=== PATIENT | female | born 1960 | race Caucasian/White ===

== ENCOUNTER 2022-09-07 13:05 | Inpatient (IN) | payer MEDICAID ==
[~2022-09-07] VITALS: Ht 170.2 cm; Wt 81.3 kg
[2022-09-07] MEDS ORDERED: normal saline 1000ML IV soln IV ONE (13:25)
[2022-09-07] MEDS ORDERED: hydrALAZINE 20mg/ml inj. IV ONE (13:50)
[2022-09-07 13:57] LABS: BASOPHILS # (AUTO) 0.1 X10'3 (0-0.2); BASOPHILS % (AUTO) 0.4 % (0-1); EOSINOPHILS # (AUTO) 0.1 X10'3 (0-0.9); EOSINOPHILS % (AUTO) 0.8 % (0-6); HEMATOCRIT 46.5 % (35.0-45.0); LYMPHOCYTES # (AUTO) 0.8 X10'3 (1.1-4.8); LYMPHOCYTES % (AUTO) 5.3 % (21-51); MEAN CORPUSCULAR HEMOGLOBIN 26.7 PG (27.0-31.0); MEAN CORPUSCULAR HGB CONC 32.2 g/dL (33.0-36.5); MEAN CORPUSCULAR VOLUME 82.9 FL (78-98); MEAN PLATELET VOLUME 9.7 FL (7.4-10.4); MONOCYTES % (AUTO) 6.9 % (2-12); NEUTROPHILS # (AUTO) 12.9 X10'3 (1.8-7.7); NEUTROPHILS % (AUTO) 86.6 % (42-75); PLATELET COUNT 335 X10'3 (140-440); RED BLOOD COUNT 5.61 X10'6 (4.20-5.60); RED CELL DISTRIBUTION WIDTH 14.8 % (11.5-14.5); WHITE BLOOD COUNT 14.9 X10'3 (4.5-11.0)
[2022-09-07 14:13] LABS: ALANINE AMINOTRANSFERASE 28 U/L (12-78); ALBUMIN 3.2 G/DL (3.4-5.0); ALBUMIN/GLOBULIN RATIO 0.8 (1.1-1.5); ALKALINE PHOSPHATASE 76 IU/L (46-116); ANION GAP 12 (8-16); ASPARTATE AMINO TRANSFERASE 22 U/L (10-37); BILIRUBIN,TOTAL 0.4 MG/DL (0.1-1.0); BLOOD UREA NITROGEN 40 MG/DL (7-18); BUN/CREATININE RATIO 20.5 (6.6-38.0); CALCIUM 10.2 MG/DL (8.5-10.1); CHLORIDE 106 MMOL/L (99-107); CREATININE 1.95 MG/DL (0.40-0.90); GLUCOSE 124 MG/DL (70-104); MAGNESIUM 1.5 MG/DL (1.5-2.4); SODIUM 146 MMOL/L (135-145); TOTAL CARBON DIOXIDE 28.1 MMOL/L (24-32); TOTAL PROTEIN 7.3 G/DL (6.4-8.2); eGFR 26 ML/MIN
[2022-09-07 14:26] LABS: CLARITY,URINE SLIGHTLY CLOUDY (Clear); COLOR,URINE STRAW (Yellow); GLUCOSE, URINE 500 mg/dl (Neg); KETONES,URINE NEGATIVE (Neg); LEUKOCYTE ESTERASE ,URINE NEGATIVE (Neg); NITRITES, URINE NEGATIVE (Neg); OCCULT BLOOD,URINE SMALL (Neg); PROTEIN,URINE >=300 mg/dl (Neg); UROBILINOGEN,URINE 0.2 E.U/dL (0.2-1.0)
[2022-09-07 14:36] LABS: UA COLLECTION TYPE FOLEY CATH
[2022-09-07 14:36] LABS: POTASSIUM 2.5 MMOL/L (3.5-5.1)
[2022-09-07] MEDS ORDERED: potassium Cl 20 mEq SR tablet PO PRN (14:40)
[2022-09-07] MEDS ORDERED: magnesium Cl slow-release 64mg tablet PO PRN ×2 (14:40→20:30)
[2022-09-07] MEDS ORDERED: magnesium 4gm in 100ml NS 100 ML IV PRN ×2 (14:40→20:30)
[2022-09-07 14:42] LABS: SQUAMOUS EPITHELIAL CELL,UR FEW /LPF (FEW)
[2022-09-07 14:43] LABS: BACTERIA,URINE FEW /HPF (Neg); MUCUS STRANDS NONE SEEN /LPF (Neg)
[2022-09-07 14:44] LABS: RBC,URINE 0-2 /HPF (0-2); WBC,URINE 0-4 /HPF (0-4)
[2022-09-07] MEDS ORDERED: normal saline 1000ML IV soln IVB ONE (15:00)
[2022-09-07] MEDS ORDERED: labetalol 20mg/4ml (5mg/ml) syringe IV ONE (15:05)
[2022-09-07] MEDS: potassium Cl 40MEQ/1/2NS 520ml 520 ML IV PRN ×2 (15:19→22:37)
[2022-09-07 15:48] LABS: URINE AMPHETAMINE SCREEN NEGATIVE (Neg); URINE BARBITUATE SCREEN NEGATIVE (Neg); URINE BENZODIAZEPINES SCREEN NEGATIVE (Neg); URINE CANNABINOID SCREEN NEGATIVE (Neg); URINE COCAINE SCREEN NEGATIVE (Neg); URINE METHADONE SCREEN NEGATIVE (Neg); URINE OPIATE SCREEN NEGATIVE (Neg); URINE PHENCYCLIDINE SCREEN NEGATIVE (Neg)
[2022-09-07] MEDS ORDERED: hydrALAZINE 25 MG tablet PO ONE (17:55)
[2022-09-07] MEDS ORDERED: nitroGLYCERIN 0.4mg/hour patch TD ONE (18:35)
[2022-09-07] MEDS: K and/or MAG REPLACEMENT MC SCH (20:00)
[2022-09-07] MEDS ORDERED: ondansetron/PF 4mg/2ml inj IV PRN (20:30)
[2022-09-07] MEDS ORDERED: bisacodyl 10mg suppository rectal RC PRN (20:30)
[2022-09-07] MEDS ORDERED: magnesium hydroxide 30ml (MOM) UD suspension PO PRN (20:30)
[2022-09-07] MEDS ORDERED: PERFLUTREN PROTEIN-A MICROSPHR (Optison) 0.22 MG/ML 3ML VIAL IV PRN (20:30)
[2022-09-07] MEDS ORDERED: acetaminophen 325mg tablet PO PRN (20:30)
[2022-09-07] MEDS ORDERED: acetaminophen 650mg rectal suppository RC PRN (20:30)
[2022-09-07] MEDS ORDERED: diphenhydrAMINE 25mg capsule PO PRN (20:30)
[2022-09-07] MEDS ORDERED: potassium Cl 40MEQ/1/2NS 520ml 520 ML IV PRN (20:30)
[2022-09-07] MEDS ORDERED: mag hydrox/Alum hydrox/simeth 30ml oral suspension PO PRN (20:30)
[2022-09-07] MEDS: niCARDipine-NS 40mg/200ml IVPB 200 ML IV SCH (20:50)
[2022-09-07] MEDS: normal saline 1000ml 1,000 ML IV SCH (20:51)
[2022-09-07] MEDS ORDERED: amLODIPine 5mg tablet PO ONE (21:00)
[2022-09-07] MEDS: amLODIPine 5mg tablet PO SCH (21:34)
[2022-09-08] VITALS (9 sets, daily range): BP systolic 122–170; BP diastolic 78–94
[2022-09-08 03:23] LABS: BASOPHILS # (AUTO) 0.1 X10'3 (0-0.2); BASOPHILS % (AUTO) 0.8 % (0-1); EOSINOPHILS % (AUTO) 0.2 % (0-6); HEMATOCRIT 44.7 % (35.0-45.0); HEMOGLOBIN 14.1 g/dl (12.0-16.0); LYMPHOCYTES # (AUTO) 0.3 X10'3 (1.1-4.8); LYMPHOCYTES % (AUTO) 2.4 % (21-51); MEAN CORPUSCULAR HEMOGLOBIN 26.5 PG (27.0-31.0); MEAN CORPUSCULAR HGB CONC 31.6 g/dL (33.0-36.5); MEAN CORPUSCULAR VOLUME 83.6 FL (78-98); MEAN PLATELET VOLUME 9.2 FL (7.4-10.4); MONOCYTES # (AUTO) 1.7 X10'3 (0-0.9); MONOCYTES % (AUTO) 12.3 % (2-12); NEUTROPHILS # (AUTO) 11.5 X10'3 (1.8-7.7); NEUTROPHILS % (AUTO) 84.3 % (42-75); PLATELET COUNT 321 X10'3 (140-440); RED BLOOD COUNT 5.34 X10'6 (4.20-5.60); RED CELL DISTRIBUTION WIDTH 14.8 % (11.5-14.5); WHITE BLOOD COUNT 13.6 X10'3 (4.5-11.0)
[2022-09-08 03:49] LABS: ALANINE AMINOTRANSFERASE 23 U/L (12-78); ALBUMIN 2.9 G/DL (3.4-5.0); ALBUMIN/GLOBULIN RATIO 0.8 (1.1-1.5); ALKALINE PHOSPHATASE 73 IU/L (46-116); ANION GAP 14 (8-16); ASPARTATE AMINO TRANSFERASE 16 U/L (10-37); BILIRUBIN,TOTAL 0.4 MG/DL (0.1-1.0); BLOOD UREA NITROGEN 26 MG/DL (7-18); BUN/CREATININE RATIO 15.8 (6.6-38.0); CALCIUM 8.9 MG/DL (8.5-10.1); CHLORIDE 109 MMOL/L (99-107); CHOL/HDL RATIO 4.7 (0.00-4.99); CHOLESTEROL 194 MG/DL (0-200); CREATININE 1.65 MG/DL (0.40-0.90); GLUCOSE 136 MG/DL (70-104); HDL CHOLESTEROL 41 MG/DL (35-60); LDL CHOLESTEROL 112 MG/DL (50-100); MAGNESIUM 1.1 MG/DL (1.5-2.4); PHOSPHORUS 3.8 MG/DL (2.3-4.5); POTASSIUM 3.1 MMOL/L (3.5-5.1); SODIUM 145 MMOL/L (135-145); TOTAL CARBON DIOXIDE 22.5 MMOL/L (24-32); TOTAL PROTEIN 6.5 G/DL (6.4-8.2); TRIGLYCERIDES 240 MG/DL (20-135); eGFR 32 ML/MIN
[2022-09-08 04:27] LABS: PLATELET ESTIMATE NORMAL; TOTAL CELLS COUNTED 100
[2022-09-08] MEDS: niCARDipine-NS 40mg/200ml IVPB 200 ML IV SCH (04:59)
--- NOTE | 2022-09-08 05:04 | NUR ---
Patient noted increasing HR into 120s, low 130s, admitting provider notified, discussed giving soon due tylenol, provider advised if HR does not improve give 12.5mg PO lopressor.
[2022-09-08] MEDS: acetaminophen 325mg tablet PO PRN ×2 (05:13→16:17)
[2022-09-08] MEDS ORDERED: metoprolol tartrate 12.5mg (1/2 tablet) PO ONE (05:20)
[2022-09-08] MEDS: normal saline 1000ml 1,000 ML IV SCH ×2 (06:30→18:36)
[2022-09-08] MEDS: K and/or MAG REPLACEMENT MC SCH ×4 (08:00→20:00)
[2022-09-08] MEDS ORDERED: heparin, porcine 5000 units/ml vial SQ SCH (08:00)
[2022-09-08] MEDS: CefTRIAXone/D5W-Rocephin 1gm 50 ML IV SCH (08:35)
[2022-09-08] MEDS: amLODIPine 5mg tablet PO SCH (08:35)
[2022-09-08] MEDS: docusate sod 100mg capsule PO SCH ×2 (08:36→20:00)
[2022-09-08 11:25] LABS: MAGNESIUM 2.5 MG/DL (1.5-2.4)
[2022-09-08 11:36] LABS: POTASSIUM 2.8 MMOL/L (3.5-5.1)
[2022-09-08] MEDS ORDERED: GABA-530 PO (13:33)
[2022-09-08] MEDS ORDERED: APIX5TAB3 PO (13:33)
[2022-09-08] MEDS ORDERED: METO100T14 PO (13:33)
[2022-09-08] MEDS ORDERED: CINA30TA7 PO (13:33)
[2022-09-08] MEDS ORDERED: METF-438 PO (13:33)
[2022-09-08] MEDS ORDERED: DILT-94 PO (13:33)
[2022-09-08] MEDS ORDERED: FAMO40TA58 PO (13:33)
[2022-09-08] MEDS ORDERED: EMPA25TA PO (13:33)
[2022-09-08] MEDS ORDERED: INSU100I31 SQ (13:33)
[2022-09-08] MEDS ORDERED: FLAS1KIT3 (13:33)
[2022-09-08] MEDS ORDERED: MYCO250C PO (13:33)
[2022-09-08] MEDS ORDERED: BRIM5DRO2 EACHEYE (13:46)
[2022-09-08] MEDS ORDERED: SPIR50TA5 PO (13:46)
[2022-09-08] MEDS ORDERED: ATOR10TA70 PO (13:46)
[2022-09-08] MEDS ORDERED: LOSA100T57 PO (13:46)
[2022-09-08] MEDS ORDERED: FURO40TA4 PO (13:46)
[2022-09-08] MEDS ORDERED: TACR0.5C3 PO (13:46)
[2022-09-08] MEDS ORDERED: diltiazem 5mg/ml 5ml inj. IV ONE (14:15)
[2022-09-08] MEDS ORDERED: diltiazem-D5W 125mg/125ml 125 ML IV SCH (15:15)
[2022-09-08] MEDS ORDERED: DEXTROSE 15 GM of carb/4 tabs (each vial/BOTTLE has 4 tablets) PO PRN ×2 (15:30)
[2022-09-08] MEDS ORDERED: MESSAGE TO PHARMACY PO ONE (15:30)
[2022-09-08] MEDS ORDERED: dextrose 50%-water 50ml dispensing syringe IV PRN ×2 (15:30)
[2022-09-08] MEDS ORDERED: glucagon, human recombinant 1mg kit SUBCUT PRN (15:30)
[2022-09-08] MEDS ORDERED: insulin Lispro (HumaLOG) vial - multi-dose SQ SCH (15:30)
[2022-09-08] MEDS: diltiazem-NS 100mg/100ml 100 ML IV SCH (16:17)
[2022-09-08] MEDS ORDERED: furosemide 40mg tablet PO SCH (20:00)
[2022-09-08] MEDS: tacrolimus anhydrous 0.5mg capsule PO SCH (20:02)
[2022-09-08] MEDS: metoprolol tartrate 50mg tablet PO SCH (20:04)
[2022-09-08] MEDS: apixaban 5mg tablet PO SCH (20:04)
[2022-09-08] MEDS: gabapentin 100mg capsule PO SCH (20:14)
[2022-09-08] MEDS: HYDROcodone/acetaminophen 5mg/325mg tablet PO PRN (20:17)
[2022-09-08] MEDS: mycophenolate mofetil 250mg capsule PO SCH (20:22)
[2022-09-08] MEDS: potassium Cl 20 mEq SR tablet PO PRN (22:32)
[2022-09-08] MEDS: insulin glargine (Lantus) pen - multi-dose SQ SCH (22:32)
[2022-09-09] VITALS (15 sets, daily range): BP systolic 128–168; BP diastolic 81–98
--- NOTE | 2022-09-09 01:21 | NUR ---
Per MD HERNANDEZ, may give 0800am dose amlodipine 10mg at 0300am. HR TRENDING NOW IN 70/80'S FROM A HIGH OF 140'S SINUS TACH 09/08 DAYSHIFT. WILL INFORM DAY SHIFT RN OF EARLY ADMINISTRATION OF MEDICATION TO ASSIST IN BLOOD PRESSURE MANAGEMENT. MICKI GONZALEZ
[2022-09-09] MEDS: potassium Cl 20 mEq SR tablet PO PRN ×5 (02:51→20:02)
[2022-09-09] MEDS: diltiazem-NS 100mg/100ml 100 ML IV SCH (04:28)
[2022-09-09] MEDS: amLODIPine 5mg tablet PO SCH (04:33)
[2022-09-09] MEDS: HYDROcodone/acetaminophen 5mg/325mg tablet PO PRN ×2 (04:36→20:01)
--- NOTE | 2022-09-09 06:15 | NUR ---
Patient in room PCU 3016. I have received report from Mragi GONZALEZ and had the opportunity to ask questions and assume patient care.Will follow care of pt with Constantin BRADSHAW.
--- NOTE | 2022-09-09 06:30 | NUR ---
Problems reprioritized. Patient report given, questions answered & plan of care reviewed with ARVIND GONZALEZ.
--- NOTE | 2022-09-09 06:39 | NUR ---
Patient in room PCU 3016. I have received report from Margi GONZALEZ and had the opportunity to ask questions and assume patient care. Call light within reach, pt resting eyes closed, breathing even and unlabored on Oxygen @ 2LPM via nasal cannula. Bedside report given. No distress noted. Addendum: 09/09/22 at 0640 by Constantin Sagastume LVN Amended: Links added.
[2022-09-09] MEDS: timolol 0.5% ophthalmic solution 5ml bottle EACHEYE SCH (07:12)
[2022-09-09] MEDS: brimonidine 0.2% 5 ML ophthalmic drops EACHEYE SCH (07:12)
[2022-09-09] MEDS: normal saline 1000ml 1,000 ML IV SCH ×2 (07:20→22:24)
[2022-09-09 07:34] LABS: BASOPHILS # (AUTO) 0.1 X10'3 (0-0.2); BASOPHILS % (AUTO) 0.6 % (0-1); EOSINOPHILS % (AUTO) 0 % (0-6); HEMATOCRIT 36.5 % (35.0-45.0); HEMOGLOBIN 12.2 g/dl (12.0-16.0); LYMPHOCYTES # (AUTO) 0.8 X10'3 (1.1-4.8); MEAN CORPUSCULAR HEMOGLOBIN 27.5 PG (27.0-31.0); MEAN CORPUSCULAR HGB CONC 33.4 g/dL (33.0-36.5); MEAN CORPUSCULAR VOLUME 82.5 FL (78-98); MEAN PLATELET VOLUME 9.3 FL (7.4-10.4); MONOCYTES # (AUTO) 2.2 X10'3 (0-0.9); MONOCYTES % (AUTO) 20.6 % (2-12); NEUTROPHILS # (AUTO) 7.8 X10'3 (1.8-7.7); NEUTROPHILS % (AUTO) 71.8 % (42-75); PLATELET COUNT 243 X10'3 (140-440); RED BLOOD COUNT 4.42 X10'6 (4.20-5.60); RED CELL DISTRIBUTION WIDTH 15.1 % (11.5-14.5); WHITE BLOOD COUNT 10.8 X10'3 (4.5-11.0)
[2022-09-09] MEDS: apixaban 5mg tablet PO SCH ×2 (07:47→20:01)
[2022-09-09] MEDS: docusate sod 100mg capsule PO SCH ×2 (07:48→20:00)
[2022-09-09] MEDS: spironolactone 50 MG tablet PO SCH (07:48)
[2022-09-09] MEDS: atorvastatin 10mg tablet PO SCH (07:48)
[2022-09-09] MEDS: gabapentin 100mg capsule PO SCH ×2 (07:52→13:38)
[2022-09-09] MEDS: losartan 50mg tablet PO SCH (07:53)
[2022-09-09] MEDS: metoprolol tartrate 50mg tablet PO SCH ×2 (07:53→20:04)
[2022-09-09] MEDS: CefTRIAXone/D5W-Rocephin 1gm 50 ML IV SCH (07:57)
[2022-09-09 07:59] LABS: ALANINE AMINOTRANSFERASE 15 U/L (12-78); ALBUMIN 2.3 G/DL (3.4-5.0); ALBUMIN/GLOBULIN RATIO 0.7 (1.1-1.5); ALKALINE PHOSPHATASE 55 IU/L (46-116); ANION GAP 8 (8-16); ASPARTATE AMINO TRANSFERASE 22 U/L (10-37); BILIRUBIN,TOTAL 0.2 MG/DL (0.1-1.0); BLOOD UREA NITROGEN 32 MG/DL (7-18); BUN/CREATININE RATIO 15.4 (6.6-38.0); CALCIUM 8.1 MG/DL (8.5-10.1); CHLORIDE 106 MMOL/L (99-107); CREATININE 2.08 MG/DL (0.40-0.90); GLUCOSE 120 MG/DL (70-104); MAGNESIUM 1.9 MG/DL (1.5-2.4); PHOSPHORUS 3.7 MG/DL (2.3-4.5); POTASSIUM 3.2 MMOL/L (3.5-5.1); SODIUM 138 MMOL/L (135-145); TOTAL CARBON DIOXIDE 23.6 MMOL/L (24-32); TOTAL PROTEIN 5.5 G/DL (6.4-8.2); eGFR 24 ML/MIN
[2022-09-09] MEDS ORDERED: diltiazem CD 120mg capsule (once-daily) PO SCH (08:00)
[2022-09-09] MEDS ORDERED: famotidine 20mg tablet PO SCH ×2 (08:00→16:25)
--- NOTE | 2022-09-09 08:00 | NUR ---
Late entry- Medication mycophenolate not available in [facility], notified pharmacy.
[2022-09-09] MEDS ORDERED: LORazepam 2 mg/ml vial IV ONE ×3 (08:25→08:50)
[2022-09-09] MEDS: K and/or MAG REPLACEMENT MC SCH ×4 (08:53→20:00)
--- NOTE | 2022-09-09 09:02 | NUR ---
Message: [id number] Dimas . Pt HR converted down to 70-90's at shift change yesterday. When do you want poornima sweeney D/Luis Felipe/ Sonya BENNTET
--- NOTE | 2022-09-09 09:07 | NUR ---
Pt leaving to MRI scan with BEN GONZALEZ
--- NOTE | 2022-09-09 09:35 | NUR ---
[id number] noted. Patent. draining via gravity Addendum: 09/09/22 at 0939 by Constantin Sagastume LVN Amended: Links added.
[2022-09-09] MEDS ORDERED: GADOTERATE MEGLUMINE 7.5 MMOL/15 ML VIAL IV ONE (10:06)
--- NOTE | 2022-09-09 11:06 | NUR ---
Pt arrived 1000hrs from MRI. Patient responds to verbal stimuli, closes eyes and resumes sleeping. V/S 150/88, HR 76, RR 16, T 98.8F, SPO2 92% on 5LPM. BEN GONZALEZ and account underwriter verified flow rate with current orders.
[2022-09-09] MEDS: diltiazem CD 120mg capsule (once-daily) PO SCH (11:45)
[2022-09-09] MEDS: mycophenolate mofetil 250mg capsule PO SCH ×2 (11:45→20:30)
[2022-09-09] MEDS: acetaminophen 325mg tablet PO PRN ×2 (11:50→22:46)
--- NOTE | 2022-09-09 12:34 | NUR ---
Per EMR pt with T2M, well controlled with A1c 7.0%. Written DM education with RD contact information placed in patient's chart. Will remain available. Addendum: 09/09/22 at [address] Amended: Links added.
--- NOTE | 2022-09-09 17:03 | NUR ---
All verbal and written discharge instructions provided. All questions answered. PIV discontinued. Patient brought all her belongings with her including cell phone and clothes in a cloth shopping bag. Patient ambulated via wheelchair with staff to [facility]. Patient left with all items, phone, belongings, and discharge paperwork. N95 mask in place Addendum: 09/09/22 at 1714 by Constantin Sagastume LVN Amended: Links added. Addendum: 09/09/22 at 1715 by Constantin Sagastume LVN Wrong chart, wrong patient. disregard note
--- NOTE | 2022-09-09 17:55 | NUR ---
I have reviewed and agree with all interventions, assessments performed and documented by Constantin BRADSHAW. Addendum: 09/09/22 at 1756 by Sonya Gray RN Amended: Links added.
--- NOTE | 2022-09-09 18:13 | NUR ---
Problems reprioritized. Patient report given, questions answered & plan of care reviewed with Margi GONZALEZ. Call light within reach. Pt eating dinner, no distress. Bedside report given. Addendum: 09/09/22 at 1814 by Constantin Sagastume LVN Amended: Links added.
--- NOTE | 2022-09-09 18:25 | NUR ---
Patient in room PCU 3016. I have received report from Sonya GONZALEZ and had the opportunity to ask questions and assume patient care.
[2022-09-09] MEDS: tacrolimus anhydrous 0.5mg capsule PO SCH (20:17)
[2022-09-09] MEDS: insulin glargine (Lantus) pen - multi-dose SQ SCH (21:00)
--- NOTE | 2022-09-09 21:53 | NUR ---
PATIENT REQUEST ASSEMBLER CHASSIS CONSULT
[2022-09-10] MEDS: HYDROcodone/acetaminophen 5mg/325mg tablet PO PRN ×2 (02:15→08:42)
[2022-09-10 02:16] VITALS: BP 146/84
--- NOTE | 2022-09-10 06:39 | NUR ---
Patient in room PCU 3016. I have received report from Margi GONZALEZ and had the opportunity to ask questions and assume patient care. Bedside report given. Call light within reach. Pt alert to verbal stimuli. Call light within reach. No distress noted. Addendum: 09/10/22 at 0640 by Constantin Sagastume LVN Amended: Links added.
--- NOTE | 2022-09-10 06:45 | NUR ---
Problems reprioritized. Patient report given, questions answered & plan of care reviewed with Constantin GONZALEZ.
[2022-09-10 07:00] VITALS: BP 125/71
[2022-09-10 07:07] LABS: BASOPHILS % (AUTO) 0.5 % (0-1); EOSINOPHILS % (AUTO) 0.4 % (0-6); HEMATOCRIT 35.8 % (35.0-45.0); HEMOGLOBIN 11.6 g/dl (12.0-16.0); LYMPHOCYTES # (AUTO) 1.1 X10'3 (1.1-4.8); LYMPHOCYTES % (AUTO) 11.9 % (21-51); MEAN CORPUSCULAR HEMOGLOBIN 27.3 PG (27.0-31.0); MEAN CORPUSCULAR HGB CONC 32.5 g/dL (33.0-36.5); MEAN CORPUSCULAR VOLUME 83.8 FL (78-98); MONOCYTES # (AUTO) 1.7 X10'3 (0-0.9); NEUTROPHILS # (AUTO) 6.2 X10'3 (1.8-7.7); NEUTROPHILS % (AUTO) 68.2 % (42-75); PLATELET COUNT 211 X10'3 (140-440); RED BLOOD COUNT 4.27 X10'6 (4.20-5.60); RED CELL DISTRIBUTION WIDTH 15.2 % (11.5-14.5); WHITE BLOOD COUNT 9.1 X10'3 (4.5-11.0)
[2022-09-10 07:24] LABS: ALANINE AMINOTRANSFERASE 18 U/L (12-78); ALBUMIN/GLOBULIN RATIO 0.7 (1.1-1.5); ALKALINE PHOSPHATASE 51 IU/L (46-116); ANION GAP 7 (8-16); ASPARTATE AMINO TRANSFERASE 24 U/L (10-37); BILIRUBIN,TOTAL 0.2 MG/DL (0.1-1.0); BLOOD UREA NITROGEN 34 MG/DL (7-18); CALCIUM 8.2 MG/DL (8.5-10.1); CHLORIDE 107 MMOL/L (99-107); CREATININE 2.13 MG/DL (0.40-0.90); GLUCOSE 101 MG/DL (70-104); MAGNESIUM 1.7 MG/DL (1.5-2.4); PHOSPHORUS 3.5 MG/DL (2.3-4.5); POTASSIUM 3.8 MMOL/L (3.5-5.1); SODIUM 138 MMOL/L (135-145); TOTAL CARBON DIOXIDE 24.5 MMOL/L (24-32); eGFR 24 ML/MIN
[2022-09-10] MEDS: CefTRIAXone/D5W-Rocephin 1gm 50 ML IV SCH (07:36)
[2022-09-10] MEDS: K and/or MAG REPLACEMENT MC SCH ×4 (08:00→20:00)
[2022-09-10] MEDS: docusate sod 100mg capsule PO SCH (08:00)
[2022-09-10] MEDS: brimonidine 0.2% 5 ML ophthalmic drops EACHEYE SCH (08:38)
[2022-09-10] MEDS: timolol 0.5% ophthalmic solution 5ml bottle EACHEYE SCH (08:38)
[2022-09-10] MEDS: losartan 50mg tablet PO SCH (08:43)
[2022-09-10] MEDS: spironolactone 50 MG tablet PO SCH (08:44)
[2022-09-10] MEDS: gabapentin 100mg capsule PO SCH (08:44)
[2022-09-10] MEDS: apixaban 5mg tablet PO SCH ×2 (08:45→20:20)
[2022-09-10] MEDS: diltiazem CD 120mg capsule (once-daily) PO SCH (08:45)
[2022-09-10] MEDS: atorvastatin 10mg tablet PO SCH (08:45)
[2022-09-10] MEDS: metoprolol tartrate 50mg tablet PO SCH ×2 (08:46→20:21)
[2022-09-10] MEDS: amLODIPine 5mg tablet PO SCH (08:46)
[2022-09-10] MEDS: mycophenolate mofetil 250mg capsule PO SCH ×2 (08:47→20:20)
[2022-09-10] MEDS ORDERED: HYDROcodone/acetaminophen 5mg/325mg tablet PO PRN (09:45)
[2022-09-10 11:56] VITALS: BP 122/73
[2022-09-10] MEDS: normal saline 1000ml 1,000 ML IV SCH ×2 (12:12→23:56)
[2022-09-10 15:22] VITALS: BP 133/73
[2022-09-10 17:10] VITALS: BP_SYST 151; BP_SYST 157; BP_DIAS 85; BP_DIAS 88
--- NOTE | 2022-09-10 18:41 | NUR ---
Problems reprioritized. Patient report given, questions answered & plan of care reviewed with Hany GONZALEZ. Call light within reach. BReathing even and unlabored, no distress. Bed side report given. Bed in lowest position. Addendum: 09/10/22 at 1842 by Constantin Sagastume LVN Amended: Links added.
[2022-09-10] MEDS: insulin glargine (Lantus) pen - multi-dose SQ SCH (21:00)
[2022-09-10] MEDS: tacrolimus anhydrous 0.5mg capsule PO SCH (21:00)
[2022-09-11] MEDS ORDERED: Melatonin 3mg tablet PO ONE (00:35)
[2022-09-11] MEDS: K and/or MAG REPLACEMENT MC SCH ×2 (08:00)
[2022-09-11] MEDS ORDERED: cinacalcet 30mg tablet PO SCH (08:00)
[2022-09-11 08:09] LABS: BASOPHILS % (AUTO) 0.5 % (0-1); EOSINOPHILS # (AUTO) 0.1 X10'3 (0-0.9); EOSINOPHILS % (AUTO) 1.5 % (0-6); HEMATOCRIT 35.4 % (35.0-45.0); HEMOGLOBIN 11.7 g/dl (12.0-16.0); LYMPHOCYTES % (AUTO) 12.5 % (21-51); MEAN CORPUSCULAR HEMOGLOBIN 27.5 PG (27.0-31.0); MEAN CORPUSCULAR HGB CONC 33.1 g/dL (33.0-36.5); MEAN CORPUSCULAR VOLUME 83.3 FL (78-98); MONOCYTES # (AUTO) 1.2 X10'3 (0-0.9); MONOCYTES % (AUTO) 14.6 % (2-12); NEUTROPHILS # (AUTO) 5.7 X10'3 (1.8-7.7); NEUTROPHILS % (AUTO) 70.9 % (42-75); PLATELET COUNT 214 X10'3 (140-440); RED BLOOD COUNT 4.25 X10'6 (4.20-5.60); RED CELL DISTRIBUTION WIDTH 15.3 % (11.5-14.5)
[2022-09-11] MEDS: mycophenolate mofetil 250mg capsule PO SCH (08:10)
[2022-09-11] MEDS: losartan 50mg tablet PO SCH (08:10)
[2022-09-11] MEDS: diltiazem CD 120mg capsule (once-daily) PO SCH (08:10)
[2022-09-11] MEDS: gabapentin 100mg capsule PO SCH (08:10)
[2022-09-11] MEDS: apixaban 5mg tablet PO SCH (08:11)
[2022-09-11] MEDS: metoprolol tartrate 50mg tablet PO SCH (08:11)
[2022-09-11] MEDS: amLODIPine 5mg tablet PO SCH (08:11)
[2022-09-11] MEDS: spironolactone 50 MG tablet PO SCH (08:11)
[2022-09-11] MEDS: atorvastatin 10mg tablet PO SCH (08:11)
[2022-09-11] MEDS: CefTRIAXone/D5W-Rocephin 1gm 50 ML IV SCH (08:16)
[2022-09-11] MEDS: brimonidine 0.2% 5 ML ophthalmic drops EACHEYE SCH (08:17)
[2022-09-11] MEDS: timolol 0.5% ophthalmic solution 5ml bottle EACHEYE SCH (08:17)
[2022-09-11 08:21] LABS: ALANINE AMINOTRANSFERASE 15 U/L (12-78); ALBUMIN/GLOBULIN RATIO 0.6 (1.1-1.5); ALKALINE PHOSPHATASE 55 IU/L (46-116); ANION GAP 8 (8-16); ASPARTATE AMINO TRANSFERASE 23 U/L (10-37); BILIRUBIN,TOTAL 0.2 MG/DL (0.1-1.0); BLOOD UREA NITROGEN 32 MG/DL (7-18); BUN/CREATININE RATIO 17.3 (6.6-38.0); CALCIUM 8.4 MG/DL (8.5-10.1); CHLORIDE 106 MMOL/L (99-107); CREATININE 1.85 MG/DL (0.40-0.90); GLUCOSE 108 MG/DL (70-104); MAGNESIUM 1.6 MG/DL (1.5-2.4); PHOSPHORUS 3.6 MG/DL (2.3-4.5); POTASSIUM 3.5 MMOL/L (3.5-5.1); SODIUM 139 MMOL/L (135-145); TOTAL CARBON DIOXIDE 25.2 MMOL/L (24-32); TOTAL PROTEIN 5.2 G/DL (6.4-8.2); eGFR 28 ML/MIN
[2022-09-11] MEDS ORDERED: FURO40TA4 PO (10:17)
[2022-09-11] MEDS ORDERED: CEFD300C21 PO (10:20)
[2022-09-11 11:00] VITALS: BP 159/89
[2022-09-11] MEDS ORDERED: Melatonin 3mg tablet PO SCH (21:00)
[2022-09-14 05:20] LABS: EBV AB VCA, IGM <36.0 U/mL (0.0-35.9)
== END 2022-09-11 11:30 | disposition home or self-care (01) | DRG 469 ==
LOC: ER 13:05 → ED HOLD 20:41 → PCU 3S 09-08 07:18
PROVIDERS: ADMIT Family Medicine; ATTEND Family Medicine
DX: N17.9 Acute kidney failure, unspecified (principal); G93.41 Metabolic encephalopathy; D84.9 Immunodeficiency, unspecified; T86.19 Other complication of kidney transplant; J18.9 Pneumonia, unspecified organism; E87.0 Hyperosmolality and hypernatremia; E87.20 Acidosis, unspecified; I16.1 Hypertensive emergency; E87.6 Hypokalemia; Z20.822 Contact with and (suspected) exposure to COVID-19; E11.21 Type 2 diabetes mellitus with diabetic nephropathy; E11.40 Type 2 diabetes mellitus with diabetic neuropathy, unspecified; E66.9 Obesity, unspecified; I11.0 Hypertensive heart disease with heart failure; I25.10 Atherosclerotic heart disease of native coronary artery without angina pectoris; I50.9 Heart failure, unspecified; I48.0 Paroxysmal atrial fibrillation; E78.5 Hyperlipidemia, unspecified; Y83.0 Surgical operation with transplant of whole organ as the cause of abnormal reaction of the patient, or of later complication, without mention of misadventure at the time of the procedure; Z79.899 Other long term (current) drug therapy; Z86.73 Personal history of transient ischemic attack (TIA), and cerebral infarction without residual deficits; Z79.01 Long term (current) use of anticoagulants; Z80.6 Family history of leukemia; Z95.5 Presence of coronary angioplasty implant and graft; Z99.2 Dependence on renal dialysis; Z63.4 Disappearance and death of family member; Z74.01 Bed confinement status; Y92.89 Other specified places as the place of occurrence of the external cause; Z88.5 Allergy status to narcotic agent; Z98.51 Tubal ligation status; Z68.28 Body mass index [BMI] 28.0-28.9, adult
CPT/HCPCS: 36415; 70450; 70553; 71045; 71250; 74176; 80053; 80061; 80197; 80305; 81001; 82948; 83036; 83605; 83735; 84100; 84132; 84145; 84484; 85007; 85025; 86644; 86645; 86663; 86664; 86665; 87040; 87081; 87502; 87503; 87635; 87798; 92508; 92616; 93306; 96361; 96374; 96375; 97116; 97161; 97530; 99285; A9575; C9803; G0378; J0360; J0604; J0696; J1644; J1815; J2060; J3480; J3490; J7030; J7040; J7507; J7517; Q0163

== ENCOUNTER 2022-09-27 11:26 | Inpatient (IN) | payer MEDICAID ==
[~2022-09-27] VITALS: Ht 165.1 cm; Wt 74.0 kg
[~2022-09-27 11:26] MED LIST: APIX5TAB3 PO; ATOR10TA70 PO; BRIM5DRO2 EACHEYE; CINA30TA7 PO; DILT-94 PO; FAMO40TA58 PO; FLAS1KIT3; FURO40TA4 PO; GABA-530 PO; INSU100I31 SQ; LOSA100T57 PO; METO100T14 PO; MYCO250C PO; SPIR50TA5 PO; TACR0.5C3 PO
[2022-09-27] MEDS ORDERED: normal saline 1000ML IV soln IVB ONE (12:10)
[2022-09-27] MEDS ORDERED: PATIROMER CALCIUM SORBITEX 8.4 GM POWD.PACK PO ONE (12:10)
[2022-09-27] MEDS ORDERED: albuterol 2.5 MG/3 ML nebule CONTNEB PRN (12:10)
[2022-09-27] MEDS ORDERED: furosemide 40mg/4ml inj IV ONE (12:10)
[2022-09-27 12:15] LABS: BASOPHILS # (AUTO) 0.1 X10'3 (0-0.2); BASOPHILS % (AUTO) 1.3 % (0-1); EOSINOPHILS # (AUTO) 0.3 X10'3 (0-0.9); EOSINOPHILS % (AUTO) 2.9 % (0-6); HEMATOCRIT 42.1 % (35.0-45.0); HEMOGLOBIN 13.4 g/dl (12.0-16.0); LYMPHOCYTES # (AUTO) 1.6 X10'3 (1.1-4.8); MEAN CORPUSCULAR HEMOGLOBIN 26.6 PG (27.0-31.0); MEAN CORPUSCULAR HGB CONC 31.7 g/dL (33.0-36.5); MEAN PLATELET VOLUME 9.1 FL (7.4-10.4); MONOCYTES # (AUTO) 0.8 X10'3 (0-0.9); MONOCYTES % (AUTO) 8.1 % (2-12); NEUTROPHILS # (AUTO) 7.6 X10'3 (1.8-7.7); NEUTROPHILS % (AUTO) 72.7 % (42-75); PLATELET COUNT 430 X10'3 (140-440); RED BLOOD COUNT 5.01 X10'6 (4.20-5.60); RED CELL DISTRIBUTION WIDTH 14.8 % (11.5-14.5); WHITE BLOOD COUNT 10.5 X10'3 (4.5-11.0)
[2022-09-27 12:21] LABS: ALANINE AMINOTRANSFERASE 20 U/L (12-78); ALBUMIN 3.7 G/DL (3.4-5.0); ALKALINE PHOSPHATASE 93 IU/L (46-116); ANION GAP 13 (8-16); ASPARTATE AMINO TRANSFERASE 10 U/L (10-37); BILIRUBIN,TOTAL 0.3 MG/DL (0.1-1.0); BLOOD UREA NITROGEN 71 MG/DL (7-18); BUN/CREATININE RATIO 17.3 (6.6-38.0); CALCIUM 9.4 MG/DL (8.5-10.1); CHLORIDE 105 MMOL/L (99-107); GLUCOSE 220 MG/DL (70-104); SODIUM 138 MMOL/L (135-145); TOTAL CARBON DIOXIDE 19.8 MMOL/L (24-32); TOTAL PROTEIN 7.3 G/DL (6.4-8.2); eGFR 11 ML/MIN
[2022-09-27 12:22] LABS: POTASSIUM 6.1 MMOL/L (3.5-5.1)
[2022-09-27] MEDS ORDERED: ondansetron/PF 4mg/2ml inj IV PRN (14:25)
[2022-09-27] MEDS ORDERED: potassium Cl 40MEQ/1/2NS 520ml 520 ML IV PRN (14:25)
[2022-09-27] MEDS ORDERED: potassium Cl 20 mEq SR tablet PO PRN ×2 (14:25)
[2022-09-27] MEDS ORDERED: magnesium 4gm in 100ml NS 100 ML IV PRN (14:25)
[2022-09-27] MEDS ORDERED: acetaminophen 325mg tablet PO PRN (14:25)
[2022-09-27] MEDS ORDERED: magnesium Cl slow-release 64mg tablet PO PRN (14:25)
[2022-09-27] MEDS ORDERED: DEXTROSE 15 GM of carb/4 tabs (each vial/BOTTLE has 4 tablets) PO PRN ×2 (14:40)
[2022-09-27] MEDS ORDERED: MESSAGE TO PHARMACY PO ONE (14:40)
[2022-09-27] MEDS ORDERED: glucagon, human recombinant 1mg kit SUBCUT PRN (14:40)
[2022-09-27] MEDS ORDERED: insulin Lispro (HumaLOG) vial - multi-dose SQ SCH (14:40)
[2022-09-27] MEDS ORDERED: dextrose 50%-water 50ml dispensing syringe IV PRN ×2 (14:40)
[2022-09-27] MEDS: normal saline 1000ml 1,000 ML IV SCH ×2 (15:45→21:54)
[2022-09-27] MEDS ORDERED: POTA-207 PO (16:13)
[2022-09-27] MEDS ORDERED: ATOR10TA70 PO (16:13)
[2022-09-27] MEDS ORDERED: METO100T14 PO (16:13)
[2022-09-27] MEDS ORDERED: MYCO250C PO (16:13)
[2022-09-27] MEDS ORDERED: LOSA100T57 PO (16:13)
[2022-09-27] MEDS ORDERED: TACR0.5C3 PO (16:13)
[2022-09-27] MEDS ORDERED: DILT-94 PO (16:13)
[2022-09-27] MEDS ORDERED: CINA30TA7 PO (16:13)
[2022-09-27] MEDS ORDERED: APIX5TAB3 PO (16:13)
[2022-09-27] MEDS ORDERED: GABA-530 PO (16:13)
[2022-09-27] MEDS ORDERED: SPIR50TA5 PO (16:13)
[2022-09-27] MEDS ORDERED: TACR0.5C20 PO (16:13)
[2022-09-27] MEDS ORDERED: EMPA25TA PO (16:13)
[2022-09-27] MEDS: insulin glargine (Lantus) pen - multi-dose SQ SCH (21:00)
[2022-09-27] MEDS ORDERED: temazepam 15mg capsule PO PRN (21:00)
[2022-09-27] MEDS: gabapentin 100mg capsule PO SCH (21:29)
[2022-09-27] MEDS: mycophenolate mofetil 250mg capsule PO SCH (21:29)
[2022-09-27] MEDS: tacrolimus anhydrous 0.5mg capsule PO SCH (21:31)
[2022-09-27] MEDS: cinacalcet 30mg tablet PO SCH (21:31)
[2022-09-27] MEDS: heparin, porcine 5000 units/ml vial SQ SCH (21:35)
[2022-09-27] MEDS: metoprolol tartrate 50mg tablet PO SCH (21:35)
[2022-09-28] VITALS (7 sets, daily range): BP systolic 131–175; BP diastolic 67–92
[2022-09-28] MEDS: hydrALAZINE 20mg/ml inj. IV PRN (01:41)
--- NOTE | 2022-09-28 02:55 | NUR ---
pt in [id number] Dimas Blair who was admitted for hyperkalemia has b/p of 173/82.Chelsea RN pcu [id number]
--- NOTE | 2022-09-28 06:44 | NUR ---
Problems reprioritized. Patient report given, questions answered & plan of care reviewed with PAL RN.
[2022-09-28 07:02] LABS: BASOPHILS # (AUTO) 0.1 X10'3 (0-0.2); BASOPHILS % (AUTO) 0.9 % (0-1); EOSINOPHILS # (AUTO) 0.4 X10'3 (0-0.9); EOSINOPHILS % (AUTO) 3.3 % (0-6); HEMATOCRIT 40.4 % (35.0-45.0); HEMOGLOBIN 12.9 g/dl (12.0-16.0); LYMPHOCYTES # (AUTO) 2.1 X10'3 (1.1-4.8); MEAN CORPUSCULAR VOLUME 84.2 FL (78-98); MEAN PLATELET VOLUME 9.2 FL (7.4-10.4); MONOCYTES # (AUTO) 1.5 X10'3 (0-0.9); NEUTROPHILS # (AUTO) 8.1 X10'3 (1.8-7.7); NEUTROPHILS % (AUTO) 66.8 % (42-75); PLATELET COUNT 407 X10'3 (140-440); RED BLOOD COUNT 4.79 X10'6 (4.20-5.60); RED CELL DISTRIBUTION WIDTH 14.9 % (11.5-14.5); WHITE BLOOD COUNT 12.2 X10'3 (4.5-11.0)
[2022-09-28] MEDS: mycophenolate mofetil 250mg capsule PO SCH ×2 (08:00→19:40)
[2022-09-28] MEDS: tacrolimus anhydrous 1mg capsule PO SCH (08:00)
[2022-09-28] MEDS: metoprolol tartrate 50mg tablet PO SCH ×2 (08:36→19:38)
[2022-09-28] MEDS: cinacalcet 30mg tablet PO SCH (08:36)
[2022-09-28] MEDS: diltiazem CD 120mg capsule (once-daily) PO SCH (08:36)
[2022-09-28] MEDS: atorvastatin 10mg tablet PO SCH (08:36)
[2022-09-28] MEDS: gabapentin 100mg capsule PO SCH ×3 (08:36→20:58)
[2022-09-28] MEDS: heparin, porcine 5000 units/ml vial SQ SCH ×2 (08:38→19:34)
[2022-09-28] MEDS: normal saline 1000ml 1,000 ML IV SCH ×2 (08:39→20:52)
[2022-09-28 08:44] LABS: ALANINE AMINOTRANSFERASE 18 U/L (12-78); ALBUMIN 3.4 G/DL (3.4-5.0); ALBUMIN/GLOBULIN RATIO 1.1 (1.1-1.5); ALKALINE PHOSPHATASE 84 IU/L (46-116); ANION GAP 14 (8-16); ASPARTATE AMINO TRANSFERASE 14 U/L (10-37); BILIRUBIN,TOTAL 0.2 MG/DL (0.1-1.0); BLOOD UREA NITROGEN 62 MG/DL (7-18); BUN/CREATININE RATIO 19.4 (6.6-38.0); CALCIUM 8.9 MG/DL (8.5-10.1); CHLORIDE 109 MMOL/L (99-107); GLUCOSE 139 MG/DL (70-104); POTASSIUM 5.3 MMOL/L (3.5-5.1); SODIUM 140 MMOL/L (135-145); TOTAL CARBON DIOXIDE 17.1 MMOL/L (24-32); TOTAL PROTEIN 6.6 G/DL (6.4-8.2); eGFR 15 ML/MIN
[2022-09-28] MEDS: acetaminophen 325mg tablet PO PRN (12:17)
--- NOTE | 2022-09-28 14:39 | NUR ---
LN sent pharmacy page re: meds needed cellcept 750 and prograf 1mg, unavailable for 0800 med pass, needed for 2000 med pass. awaiting response.
--- NOTE | 2022-09-28 17:44 | NUR ---
STEEL ENGRAVER documentation: I have reviewed and agree with all interventions, assessments performed and documented by PAL, STEEL ENGRAVER.
--- NOTE | 2022-09-28 17:45 | NUR ---
LEEANN Medication Administration: For this medication-pass time frame, all medication were reviewed, dispensed, administered and documented per hospital policy by LEEANN AGUILLON.
[2022-09-28] MEDS: insulin glargine (Lantus) pen - multi-dose SQ SCH (21:00)
[2022-09-28] MEDS: tacrolimus anhydrous 0.5mg capsule PO SCH (21:00)
[2022-09-29] MEDS: hydrALAZINE 20mg/ml inj. IV PRN (01:59)
[2022-09-29 02:00] VITALS: BP 172/89
[2022-09-29] MEDS: normal saline 1000ml 1,000 ML IV SCH (06:25)
--- NOTE | 2022-09-29 06:43 | NUR ---
Problems reprioritized. Patient report given, questions answered & plan of care reviewed with Mekhi RN.
[2022-09-29 07:00] VITALS: BP 134/72
[2022-09-29 07:07] LABS: BASOPHILS # (AUTO) 0.1 X10'3 (0-0.2); BASOPHILS % (AUTO) 0.9 % (0-1); EOSINOPHILS # (AUTO) 0.3 X10'3 (0-0.9); EOSINOPHILS % (AUTO) 2.7 % (0-6); HEMATOCRIT 37.8 % (35.0-45.0); HEMOGLOBIN 12.3 g/dl (12.0-16.0); LYMPHOCYTES # (AUTO) 2.1 X10'3 (1.1-4.8); LYMPHOCYTES % (AUTO) 21.2 % (21-51); MEAN CORPUSCULAR HEMOGLOBIN 27.3 PG (27.0-31.0); MEAN CORPUSCULAR HGB CONC 32.6 g/dL (33.0-36.5); MEAN CORPUSCULAR VOLUME 83.5 FL (78-98); MEAN PLATELET VOLUME 9.3 FL (7.4-10.4); MONOCYTES # (AUTO) 1.1 X10'3 (0-0.9); MONOCYTES % (AUTO) 11.3 % (2-12); NEUTROPHILS # (AUTO) 6.5 X10'3 (1.8-7.7); NEUTROPHILS % (AUTO) 63.9 % (42-75); PLATELET COUNT 358 X10'3 (140-440); RED BLOOD COUNT 4.52 X10'6 (4.20-5.60); RED CELL DISTRIBUTION WIDTH 14.5 % (11.5-14.5); WHITE BLOOD COUNT 10.1 X10'3 (4.5-11.0)
[2022-09-29 07:40] LABS: ALANINE AMINOTRANSFERASE 16 U/L (12-78); ALKALINE PHOSPHATASE 76 IU/L (46-116); ANION GAP 14 (8-16); ASPARTATE AMINO TRANSFERASE 12 U/L (10-37); BILIRUBIN,TOTAL 0.2 MG/DL (0.1-1.0); BLOOD UREA NITROGEN 55 MG/DL (7-18); BUN/CREATININE RATIO 19.3 (6.6-38.0); CALCIUM 7.9 MG/DL (8.5-10.1); CHLORIDE 111 MMOL/L (99-107); CREATININE 2.85 MG/DL (0.40-0.90); GLUCOSE 137 MG/DL (70-104); POTASSIUM 4.4 MMOL/L (3.5-5.1); SODIUM 140 MMOL/L (135-145); TOTAL CARBON DIOXIDE 15.5 MMOL/L (24-32); TOTAL PROTEIN 6.1 G/DL (6.4-8.2); eGFR 17 ML/MIN
[2022-09-29] MEDS: acetaminophen 325mg tablet PO PRN (09:51)
[2022-09-29 09:52] VITALS: BP_SYST 134
[2022-09-29] MEDS: atorvastatin 10mg tablet PO SCH (09:52)
[2022-09-29] MEDS: cinacalcet 30mg tablet PO SCH (09:52)
[2022-09-29] MEDS: metoprolol tartrate 50mg tablet PO SCH (09:52)
[2022-09-29] MEDS: heparin, porcine 5000 units/ml vial SQ SCH (09:53)
[2022-09-29] MEDS: mycophenolate mofetil 250mg capsule PO SCH (09:54)
[2022-09-29] MEDS: tacrolimus anhydrous 1mg capsule PO SCH (09:55)
[2022-09-29] MEDS: diltiazem CD 120mg capsule (once-daily) PO SCH (10:00)
[2022-09-29] MEDS: gabapentin 100mg capsule PO SCH ×2 (10:00→12:34)
[2022-09-29] MEDS ORDERED: sodium bicarbonate 650mg tablet PO SCH (13:00)
--- NOTE | 2022-09-29 13:21 | NUR ---
Pt cleared for home discharge. IV removed. D/c paperwork discussed with pt and gag writer. All questions answered to satisfaction of pt.
[2022-09-29] MEDS ORDERED: SODI650T29 PO (17:42)
== END 2022-09-29 13:00 | disposition home or self-care (01) | DRG 466 ==
LOC: ER 11:27 → ED HOLD 14:24 → PCU 3S 09-28 00:50
PROVIDERS: ADMIT Internal Medicine; ATTEND Internal Medicine
DX: T86.19 Other complication of kidney transplant (principal); N17.8 Other acute kidney failure; I13.2 Hypertensive heart and chronic kidney disease with heart failure and with stage 5 chronic kidney disease, or end stage renal disease; E11.22 Type 2 diabetes mellitus with diabetic chronic kidney disease; E87.5 Hyperkalemia; D72.829 Elevated white blood cell count, unspecified; I48.91 Unspecified atrial fibrillation; N18.6 End stage renal disease; I50.9 Heart failure, unspecified; Y83.0 Surgical operation with transplant of whole organ as the cause of abnormal reaction of the patient, or of later complication, without mention of misadventure at the time of the procedure; Z86.73 Personal history of transient ischemic attack (TIA), and cerebral infarction without residual deficits; Z87.01 Personal history of pneumonia (recurrent); Z95.5 Presence of coronary angioplasty implant and graft; Z88.8 Allergy status to other drugs, medicaments and biological substances; Z88.5 Allergy status to narcotic agent; Z79.899 Other long term (current) drug therapy; Z79.4 Long term (current) use of insulin
CPT/HCPCS: 36415; 71045; 80053; 82948; 84132; 84145; 85025; 94640; 94760; 99285; A7015; G0378; J0360; J0604; J1644; J1815; J1940; J7030; J7507; J7517

== ENCOUNTER 2023-02-11 09:01 | Inpatient (IN) | payer MEDICAID ==
[~2023-02-11] VITALS: Ht 165.1 cm; Wt 77.3 kg
[~2023-02-11 09:01] MED LIST changes: -BRIM5DRO2 EACHEYE; +EMPA25TA PO; -FAMO40TA58 PO; -FLAS1KIT3; -FURO40TA4 PO; -INSU100I31 SQ; -LOSA100T57 PO; +LOSA100T58 PO; +SODI650T29 PO; -SPIR50TA5 PO; +TACR0.5C20 PO
--- NOTE | 2023-02-11 09:25 | NUR ---
pt voided 300 cc clear yellow urine.
[2023-02-11] MEDS ORDERED: tacrolimus anhydrous 0.5mg capsule PO ONE (09:35)
[2023-02-11] MEDS ORDERED: diltiazem CD 120mg capsule (once-daily) PO ONE (09:35)
[2023-02-11] MEDS ORDERED: hyDRALAzine 10mg tablet PO ONE (09:35)
[2023-02-11] MEDS ORDERED: tacrolimus anhydrous 0.5mg capsule PO SCH (09:35)
[2023-02-11 09:37] LABS: BASOPHILS # (AUTO) 0.1 X10'3 (0-0.2); BASOPHILS % (AUTO) 1.4 % (0-1); EOSINOPHILS # (AUTO) 0.3 X10'3 (0-0.9); EOSINOPHILS % (AUTO) 2.7 % (0-6); HEMATOCRIT 37.1 % (35.0-45.0); HEMOGLOBIN 12.3 g/dl (12.0-16.0); LYMPHOCYTES # (AUTO) 1.6 X10'3 (1.1-4.8); LYMPHOCYTES % (AUTO) 15.4 % (21-51); MEAN CORPUSCULAR HEMOGLOBIN 28.1 PG (27.0-31.0); MEAN CORPUSCULAR HGB CONC 33.3 g/dL (33.0-36.5); MEAN CORPUSCULAR VOLUME 84.6 FL (78-98); MEAN PLATELET VOLUME 9.5 FL (7.4-10.4); MONOCYTES % (AUTO) 10.2 % (2-12); NEUTROPHILS # (AUTO) 7.1 X10'3 (1.8-7.7); NEUTROPHILS % (AUTO) 70.3 % (42-75); PLATELET COUNT 288 X10'3 (140-440); RED BLOOD COUNT 4.38 X10'6 (4.20-5.60); RED CELL DISTRIBUTION WIDTH 12.8 % (11.5-14.5); WHITE BLOOD COUNT 10.1 X10'3 (4.5-11.0)
[2023-02-11 09:41] LABS: CLARITY,URINE CLEAR (Clear); COLOR,URINE YELLOW (Yellow); GLUCOSE, URINE 500 mg/dl (Neg); KETONES,URINE NEGATIVE (Neg); LEUKOCYTE ESTERASE ,URINE NEGATIVE (Neg); NITRITES, URINE NEGATIVE (Neg); OCCULT BLOOD,URINE NEGATIVE (Neg); PH,URINE 6.5 (4.8-8.0); PROTEIN,URINE 100 mg/dl (Neg); UROBILINOGEN,URINE 0.2 E.U/dL (0.2-1.0)
[2023-02-11 09:45] LABS: BACTERIA,URINE NONE SEEN /HPF (Neg); MUCUS STRANDS FEW /LPF (Neg); RBC,URINE 0-2 /HPF (0-2); SQUAMOUS EPITHELIAL CELL,UR FEW /LPF (FEW); UA COLLECTION TYPE CLN CATCH MIDSTREAM; WBC,URINE 0-4 /HPF (0-4)
[2023-02-11 09:51] LABS: ALANINE AMINOTRANSFERASE 22 U/L (12-78); ALBUMIN 3.6 G/DL (3.4-5.0); ALBUMIN/GLOBULIN RATIO 1.1 (1.1-1.5); ALKALINE PHOSPHATASE 92 IU/L (46-116); ANION GAP 8 (8-16); ASPARTATE AMINO TRANSFERASE 18 U/L (10-37); BILIRUBIN,TOTAL 0.2 MG/DL (0.1-1.0); BLOOD UREA NITROGEN 47 MG/DL (7-18); BUN/CREATININE RATIO 20.9 (10.0-20.0); CALCIUM 9.6 MG/DL (8.5-10.1); CHLORIDE 107 MMOL/L (99-107); CREATININE 2.25 MG/DL (0.40-0.90); GLUCOSE 162 MG/DL (70-104); SODIUM 141 MMOL/L (135-145); TOTAL CARBON DIOXIDE 26.1 MMOL/L (24-32); TOTAL PROTEIN 6.8 G/DL (6.4-8.2); eGFR 22 ML/MIN
[2023-02-11] MEDS: spironolactone 25 MG tablet PO ONE ×2 (09:51→10:07)
[2023-02-11 09:54] LABS: MAGNESIUM 2.2 MG/DL (1.5-2.4)
--- NOTE | 2023-02-11 10:05 | NUR ---
to ct scan via gurney in stable condition.
[2023-02-11] MEDS ORDERED: hydrALAZINE 25 MG tablet PO ONE (10:10)
--- NOTE | 2023-02-11 10:13 | NUR ---
spoke with , cancelled cardizem, decreased hydalazine to 25mg. and pt refused aldactone.
--- NOTE | 2023-02-11 10:18 | NUR ---
pt back from ct scan in stable condition.
--- NOTE | 2023-02-11 10:50 | NUR ---
RT AT BEDSIDE TO DO ABG'S
[2023-02-11 10:57] LABS: ABG BASE EXCESS -0.8 mmol/L (-2.0-2.0); ABG OXYGEN SATURATION 93.4 % (94-97); ABG PCO2 (T) 40.6 mmHg (32.0-45.0); ABG PO2 (T) 70.9 mmHg (75.0-100.0); ALLEN'S TEST POSITIVE; FCOHb 0.7 % (0.0-3.9); FMetHb 0.1 % (0.0-1.5); FO2Hb 92.7 % (94-97); TOTAL HEMOGLOBIN 13.4 G/dl (12.0-16.0)
[2023-02-11 11:08] LABS: URINE AMPHETAMINE SCREEN NEGATIVE (Neg); URINE BARBITUATE SCREEN NEGATIVE (Neg); URINE BENZODIAZEPINES SCREEN NEGATIVE (Neg); URINE CANNABINOID SCREEN NEGATIVE (Neg); URINE COCAINE SCREEN NEGATIVE (Neg); URINE METHADONE SCREEN NEGATIVE (Neg); URINE OPIATE SCREEN NEGATIVE (Neg); URINE PHENCYCLIDINE SCREEN NEGATIVE (Neg)
--- NOTE | 2023-02-11 11:20 | NUR ---
pt has urge for void frequently, wick applied by aamir salguero.
--- NOTE | 2023-02-11 11:27 | NUR ---
KENYA, PTS DAUGHTER CALLED. [phone]. MICHAEL CAME BY AND TOOK CARE OF KENYA. EVERYTHING IS GOOD AT HOME.
--- NOTE | 2023-02-11 12:27 | NUR ---
PT SLEEPING QUIETLY. NO ACUTE DISTRESS NOTED AT THIS TIME.
[2023-02-11] MEDS ORDERED: magnesium hydroxide 30ml (MOM) UD suspension PO PRN (14:10)
[2023-02-11] MEDS ORDERED: magnesium 4gm in 100ml NS 100 ML IV PRN (14:10)
[2023-02-11] MEDS ORDERED: magnesium Cl slow-release 64mg tablet PO PRN (14:10)
[2023-02-11] MEDS ORDERED: potassium Cl 40MEQ/1/2NS 520ml 520 ML IV PRN (14:10)
[2023-02-11] MEDS ORDERED: magnesium 2GM in 50ml NS 50 ML IV PRN (14:10)
[2023-02-11] MEDS ORDERED: acetaminophen 325mg tablet PO PRN (14:10)
[2023-02-11] MEDS ORDERED: potassium Cl 20 mEq SR tablet PO PRN ×2 (14:10)
[2023-02-11] MEDS ORDERED: ondansetron/PF 4mg/2ml inj IV PRN (14:10)
[2023-02-11] MEDS ORDERED: mag hydrox/Alum hydrox/simeth 30ml oral suspension PO PRN (14:10)
[2023-02-11] MEDS ORDERED: TIMO5SOL8 EACHEYE (14:24)
[2023-02-11] MEDS ORDERED: HYDR-4070 PO (14:24)
[2023-02-11] MEDS ORDERED: FAMO40TA58 PO (14:24)
[2023-02-11] MEDS ORDERED: SPIR25TA PO (14:24)
[2023-02-11] MEDS ORDERED: INSU100I31 SQ (14:24)
[2023-02-11] MEDS ORDERED: INSU100V43 SQ (14:28)
[2023-02-11] MEDS ORDERED: XAL0.005OS EACHEYE (14:28)
--- NOTE | 2023-02-11 14:51 | NUR ---
PTS DAUGHTER CALLED AND TALKING WITH PT NOW.
--- NOTE | 2023-02-11 14:58 | NUR ---
PT GOING TO ROOM 4009B, REPORT GIVEN TO LISA PHILLIPS.
[2023-02-11 15:32] VITALS: BP 184/97
--- NOTE | 2023-02-11 15:38 | NUR ---
BG 124
[2023-02-11] MEDS: normal saline 1000ml 1,000 ML IV SCH (16:02)
[2023-02-11] MEDS: hydrALAZINE 25 MG tablet PO SCH ×2 (16:05→23:08)
--- NOTE | 2023-02-11 17:39 | NUR ---
pt is hard to arouse. when awake pt says a few words and falls right back asleep. will continue to monitor patient
[2023-02-11 18:00] VITALS: BP 178/92
--- NOTE | 2023-02-11 18:32 | NUR ---
Patient in room ORTHO 4009. I have received report from JACQUELINE GONZALEZ and had the opportunity to ask questions and assume patient care.
[2023-02-11] MEDS: K and/or MAG REPLACEMENT MC SCH (20:17)
[2023-02-11] MEDS: docusate sod 100mg capsule PO SCH (20:25)
[2023-02-11] MEDS: apixaban 5mg tablet PO SCH (20:26)
[2023-02-11] MEDS: mycophenolate mofetil 250mg capsule PO SCH (20:28)
[2023-02-11] MEDS: metoprolol tartrate 50mg tablet PO SCH (20:29)
[2023-02-11] MEDS ORDERED: latanoprost 0.005% 2.5ml ophthalmic drops EACHEYE SCH (21:00)
[2023-02-11] MEDS ORDERED: insulin glargine (Lantus) pen - multi-dose SQ SCH (21:00)
[2023-02-11] MEDS ORDERED: losartan 50mg tablet PO SCH (21:00)
[2023-02-11 22:00] VITALS: BP 197/97
[2023-02-12] MEDS ORDERED: amLODIPine 5mg tablet PO ONE (00:55)
[2023-02-12 01:06] VITALS: BP 205/101
[2023-02-12] MEDS: normal saline 1000ml 1,000 ML IV SCH (01:08)
--- NOTE | 2023-02-12 01:29 | NUR ---
PATIENT HAS BEEN HAVING HIGH BLOOD PRESSURE. SCHEDULED BLOOD PRESSURE MEDS ADMINISTERED PRESCRIBED AND NO CHANGE IN BP READINGS. DOCTOR MARY NOTIFIED AND NORVASC 5 MG ADMINISTERED PER MD ORDER (ONE TIME DOSE). WILL CONTINUE TO MONITOR.
[2023-02-12 02:29] VITALS: BP 201/100
--- NOTE | 2023-02-12 02:35 | NUR ---
MD NOTIFIED REGARDING PATIENT HIGH BLOOD PRESSURE AFTER A DOSE OF NORVASC WAS ADMINISTERED. BP AT 201/100 MANUALLY AND HR 80. PER MD, RECHECK BP IN AN HOUR.
[2023-02-12 03:40] VITALS: BP 198/101
[2023-02-12] MEDS ORDERED: acetaminophen 325mg tablet PO PRN (03:45)
[2023-02-12] MEDS ORDERED: cloNIDine 0.1 mg tablet PO ONE (03:45)
[2023-02-12 05:46] VITALS: BP 164/82
--- NOTE | 2023-02-12 05:48 | NUR ---
PATIENT GIVEN CLONIDINE 0.1 MG ONE-TIME DOSE FOR BP 198/101 AND HR 70 AT 0340AM AND NOW THE BLOOD PRESSURE AT 164/82 AND HR 69.
[2023-02-12 06:00] VITALS: BP 164/82
[2023-02-12 06:11] LABS: ALBUMIN 3.5 G/DL (3.4-5.0); BLOOD UREA NITROGEN 37 MG/DL (7-18); BUN/CREATININE RATIO 19.3 (10.0-20.0); CALCIUM 9.8 MG/DL (8.5-10.1); CHLORIDE 107 MMOL/L (99-107); CREATININE 1.92 MG/DL (0.40-0.90); GLUCOSE 151 MG/DL (70-104); MAGNESIUM 1.9 MG/DL (1.5-2.4); POTASSIUM 3.4 MMOL/L (3.5-5.1); SODIUM 144 MMOL/L (135-145); eGFR 27 ML/MIN
--- NOTE | 2023-02-12 06:17 | NUR ---
Problems reprioritized. Patient report given, questions answered & plan of care reviewed with JACQUELINE GONZALEZ.
[2023-02-12 06:27] LABS: BASOPHILS # (AUTO) 0.1 X10'3 (0-0.2); BASOPHILS % (AUTO) 1.1 % (0-1); EOSINOPHILS # (AUTO) 0.2 X10'3 (0-0.9); EOSINOPHILS % (AUTO) 1.9 % (0-6); HEMATOCRIT 41.8 % (35.0-45.0); HEMOGLOBIN 13.3 g/dl (12.0-16.0); LYMPHOCYTES # (AUTO) 1.3 X10'3 (1.1-4.8); MEAN CORPUSCULAR HEMOGLOBIN 26.9 PG (27.0-31.0); MEAN CORPUSCULAR HGB CONC 31.7 g/dL (33.0-36.5); MEAN CORPUSCULAR VOLUME 84.9 FL (78-98); MEAN PLATELET VOLUME 10.3 FL (7.4-10.4); MONOCYTES # (AUTO) 1.2 X10'3 (0-0.9); MONOCYTES % (AUTO) 8.9 % (2-12); NEUTROPHILS # (AUTO) 10.1 X10'3 (1.8-7.7); NEUTROPHILS % (AUTO) 78.1 % (42-75); PLATELET COUNT 346 X10'3 (140-440); RED BLOOD COUNT 4.92 X10'6 (4.20-5.60); RED CELL DISTRIBUTION WIDTH 12.8 % (11.5-14.5); WHITE BLOOD COUNT 12.9 X10'3 (4.5-11.0)
[2023-02-12 06:32] LABS: ANION GAP 10 (8-16); TOTAL CARBON DIOXIDE 26.6 MMOL/L (24-32)
[2023-02-12] MEDS: mycophenolate mofetil 250mg capsule PO SCH (07:11)
[2023-02-12] MEDS: docusate sod 100mg capsule PO SCH (07:12)
[2023-02-12] MEDS: hydrALAZINE 25 MG tablet PO SCH (07:12)
[2023-02-12] MEDS: apixaban 5mg tablet PO SCH (07:13)
[2023-02-12] MEDS: metoprolol tartrate 50mg tablet PO SCH (07:13)
[2023-02-12] MEDS: K and/or MAG REPLACEMENT MC SCH (07:18)
[2023-02-12] MEDS ORDERED: famotidine 20mg tablet PO SCH (08:00)
[2023-02-12] MEDS ORDERED: EMPAGLIFLOZIN 25 MG TABLET PO SCH (08:00)
[2023-02-12] MEDS ORDERED: timolol XE 0.5% ophth GEL forming sol 5ml EACHEYE SCH (08:00)
[2023-02-12] MEDS ORDERED: diltiazem CD 120mg capsule (once-daily) PO SCH (08:00)
[2023-02-12 10:00] VITALS: BP 131/71
--- NOTE | 2023-02-12 11:14 | NUR ---
pt ambulated around nursing unit
--- NOTE | 2023-02-12 12:55 | NUR ---
Pt discharged in stable condition to home with family. IV removed tip intact no complications. belongings sent with pt. pt educated on discharge follow up.
== END 2023-02-12 12:30 | disposition home or self-care (01) | DRG 52 ==
LOC: ER 09:02 → ED HOLD 14:11 → ORTHO 4S 15:19
PROVIDERS: ADMIT Family Medicine; ATTEND Family Medicine
DX: G92.8 Other toxic encephalopathy (principal); E10.22 Type 1 diabetes mellitus with diabetic chronic kidney disease; E78.5 Hyperlipidemia, unspecified; I12.9 Hypertensive chronic kidney disease with stage 1 through stage 4 chronic kidney disease, or unspecified chronic kidney disease; I25.10 Atherosclerotic heart disease of native coronary artery without angina pectoris; N18.9 Chronic kidney disease, unspecified; M25.512 Pain in left shoulder; T42.8X5A Adverse effect of antiparkinsonism drugs and other central muscle-tone depressants, initial encounter; Y92.89 Other specified places as the place of occurrence of the external cause; Z79.01 Long term (current) use of anticoagulants; Z79.4 Long term (current) use of insulin; Z79.624 Long term (current) use of inhibitors of nucleotide synthesis; Z79.84 Long term (current) use of oral hypoglycemic drugs; Z79.899 Other long term (current) drug therapy; Z86.73 Personal history of transient ischemic attack (TIA), and cerebral infarction without residual deficits; Z91.048 Other nonmedicinal substance allergy status; Z88.8 Allergy status to other drugs, medicaments and biological substances; Z88.5 Allergy status to narcotic agent; Z94.0 Kidney transplant status; Z95.5 Presence of coronary angioplasty implant and graft
CPT/HCPCS: 36415; 36600; 70450; 71045; 80048; 80053; 80305; 81001; 82803; 82948; 83605; 83735; 84484; 85018; 85025; 93005; 99285; G0378; J1815; J2405; J7030; J7507; J7517; L0172

== ENCOUNTER 2025-06-02 16:30 | Emergency (ER) | payer MEDICARE, MEDICAID ==
[~2025-06-02] VITALS: Ht 157.5 cm; Wt 67.7 kg
[~2025-06-02 16:30] MED LIST changes: -ATOR10TA70 PO; -CINA30TA7 PO; +FAMO40TA58 PO; -GABA-530 PO; +HYDR50TA46 PO; +INSU100I31 SQ; +INSU100V49 SQ; -SODI650T29 PO; +SPIR25TA PO; -TACR0.5C20 PO; -TACR0.5C3 PO; +TIMO5SOL8 EACHEYE; +XAL0.005OS EACHEYE
[2025-06-02 16:48] VITALS: TEMP 98.2
--- NOTE | 2025-06-02 16:56 | Physician Documentation ---
History of Present Illness ~ Chief Complaint: Abdominal Pain w/vomiting Stated Complaint: GALLBLADDER PAIN Time Seen by MD: 16:56 Primary Medical Doctor: Mynor Marks MD HPI 64-year-old female, history of peritoneal dialysis, who presents with upper abdominal pain She tells me that over the past several days or week, she has been having pain in the upper abdomen. It is located in the central upper abdomen and radiates through to her back. With the past several days it has been constant, and dull but occasionally has been sharp and severe. It is worse with food. It is worse when she lays down at night. She reports associated nausea. She does have Zofran at home that she takes for this. She has peritoneal dialysis. She denies generalized abdominal pain or peritonitis. No fevers or other infectious symptoms. She does not make much urine. She does have a history of acid reflux and a hiatal hernia. She does not take a daily antacid medicine. No other acute concerns. Medication Reconciliation Allergies: Coded Allergies: baclofen (Verified Allergy, Intermediate, RASH, 06/02/25) hydromorphone HCl (Unverified Allergy, Intermediate, 06/02/25) morphine (Verified Allergy, Unknown, 06/02/25) zolpidem (Verified Adverse Reaction, Unknown, "WANDERS", 06/02/25) Uncoded Allergies: AMBIAN (Allergy, Severe, wanders, 09/27/22) TAPE (Allergy, Unknown, 09/07/22) Scheduled Apixaban (Eliquis), 1 TAB PO BID, (Reported) Diltiazem HCl (Diltiazem 24Hr ER), 1 CAP PO DAILY, (Reported) Empagliflozin (Jardiance), 1 TAB PO DAILY, (Reported) Famotidine (Famotidine), 1 TAB PO DAILY, (Reported) Hydralazine HCl (Hydralazine HCl), 1 TAB PO Q8H, (Reported) Insulin Glargine,Hum.rec.anlog (Basaglar Kwikpen U-100), 20 UNITS SQ HS, (Reported) Latanoprost (XALATAN ophth drops), 1 DROP EACHEYE HS, (Reported) Losartan Potassium (Losartan Potassium), 1 TAB PO HS, (Reported) Metoprolol Tartrate (Metoprolol Tartrate), 1 TAB PO BID, (Reported) Mycophenolate Mofetil (Mycophenolate Mofetil), 3 CAP PO BID, (Reported) Spironolactone (Aldactone), 1 TAB PO DAILY, (Reported) Timolol Maleate Xe 0.5%* (Timoptic Xe 0.5%*), 1 DRP EACHEYE DAILY, (Reported) Miscellaneous Medications Insulin Lispro (Insulin Lispro), SQ, (Reported) Past Medical History Past Medical History: CVA/TIA/Stroke, Hypertension, Diabetes Past Surgical History: other Other Past Surgical History: Cardiac stents, kidney transplant 2003 Alcohol Use: None Drug Use: none Lives In: Home Review of Systems Constitutional: Denies: fever Gastrointestinal: Reports: abdominal pain, nausea; Denies: vomiting Physical Exam Vital Signs: Temperature: 98.2, Source: Oral, Heart Rate: 78, Respiratory Rate: 18, BP: 142/89, Pulse Oximetry: 98, Weight: 67.700 Oxygen Flow Rate: 0 Physical Exam General: This is a pleasant and nontoxic appearing middle-aged woman sitting calmly in bed HEENT: Atraumatic, oropharynx is moist Heart: Regular rate and rhythm, normal-appearing peripheral perfusion Lungs: normal work of breathing, normal oxygen saturation on room air Abdomen: Soft, nondistended. Peritoneal dialysis catheter in place. The patient has focal tenderness to palpation in the epigastric region only, otherwise nontender, no rebound or guarding. No generalized tenderness or peritoneal findings Neuro: Alert and oriented Psychiatric: Calm and cooperative with exam Progress Results/Orders Results/Orders Medications Received in ER Medications (Trade) Dose Ordered Sig/Lory Route PRN Reason Start Time Stop Time Status Last Admin Dose Admin (Maalox oral suspension) 30 ml ONCE ONCE PO 06/02/25 17:20 06/02/25 17:21 DC 06/02/25 17:27 30 ML (Xylocaine 2% Viscous 15mL cup) 15 ml ONCE ONCE MM 06/02/25 17:20 06/02/25 17:21 DC 06/02/25 17:27 15 ML Vital Signs 06/02/25 06/02/25 06/02/25 06/02/25 16:48 17:10 17:10 18:30 Temp 98.2 Pulse 78 73 88 Resp 18 16 16 B/P (MAP) 142/89 146/87 (106) 135/81 (99) Pulse Ox 98 98 98 O2 Flow Rate 0 0 Laboratory Tests Test 06/02/25 16:54 06/02/25 17:04 White Blood Count 11.7 H Red Blood Count 3.63 L Hemoglobin 10.5 L Hematocrit 32.2 L Mean Corpuscular Volume 88.9 Mean Corpuscular Hemoglobin 29.0 Mean Corpuscular Hemoglobin Concent 32.7 L Red Cell Distribution Width 13.1 Platelet Count 324 Mean Platelet Volume 8.6 Neutrophils (%) (Auto) 80.4 H Lymphocytes (%) (Auto) 5.4 L Monocytes (%) (Auto) 12.0 Eosinophils (%) (Auto) 1.5 Basophils (%) (Auto) 0.7 Neutrophils # (Auto) 9.4 H Lymphocytes # (Auto) 0.6 L Monocytes # (Auto) 1.4 H Eosinophils # (Auto) 0.2 Basophils # (Auto) 0.1 CBC Comment Sodium Level 140 Potassium Level 3.9 Chloride Level 100 Carbon Dioxide Level 26.6 Anion Gap 13 Blood Urea Nitrogen 80 H Creatinine 7.08 H Estimated GFR/1.73 m2 6 BUN/Creatinine Ratio 11.3 Glucose Level 127 H Calcium Level 9.4 Total Bilirubin 0.3 Aspartate Amino Transf (AST/SGOT) 24 Alanine Aminotransferase (ALT/SGPT) 14 Alkaline Phosphatase 64 Total Protein 6.7 Albumin 3.3 L Globulin 3.4 Albumin/Globulin Ratio 1.0 L Lipase 69 Chemistry Comments Urine Specimen Description Cln catch midstream Urine Color Yellow Urine Clarity Slightly cloudy Urine pH 5.5 Urine Specific [place] 1.025 Urine Protein >=300 H Urine Glucose (UA) Negative Urine Ketones Negative Urine Occult Blood Negative Urine Nitrite Negative Urine Bilirubin Negative Urine Urobilinogen 0.2 Urine Leukocyte Esterase Negative Urine RBC 3-10 Urine WBC 10-20 H Urine WBC Clumps Few Urine Squamous Epithelial Cells Few Urine Amorphous Urates 2+ Urine Bacteria Few Urine Coarse Granular Casts 5-10 Urine Culture Indicated Indicated Volume Urine Centrifuged 10 ml Urine HCG, Qualitative Negative Urine Comment Microbiology Date/Time Source Procedure Growth Status 06/02/25 17:33 Urine Clean Catch Midstream Urine Culture - Preliminary Culture received. Resulted Re-Evaluation Re-Evaluation : Progress Re-evaluation: After the GI cocktail the patient states that her symptoms have somewhat improved Medical Decision Making Findings Dr. Leon receiving care of patient: Followed up patient's CT scan and re-evaluated patient patient reports positive response to GI cocktail. We will treat her for gastritis. ER precautions discussed. He had not feel patient is suffering from intraperitoneal infection. Diff Dx Pain:Considerations: Include: AAA, Bowel obstruction, Cholecystitis, Cholelithasis, Constipation, Diverticular disease, Gastritis/PUD, Hernia Additional Comments The patient presents with upper abdominal pain. Per her history and exam, I suspect that this could be gastritis or peptic ulcer disease. Her laboratory testing is unremarkable, including normal LFTs and lipase. GI cocktail slightly improved her symptoms, which again would be consistent with gastritis or a peptic ulcer. The patient was signed out at shift change to the oncoming ER provider, pending CT scan of the abdomen and to determine disposition and treatment. Departure Disposition: HOME / SELF CARE / HOMELESS Impression: Primary Impression: Epigastric pain Additional Impression: Acute gastritis Condition: Improved Discharge Instructions: Gastritis, Adult Referrals: NO PRIMARY CARE PROVIDER (PCP) Prescriptions Pantoprazole Sodium (PROTONIX tablet) 40 Mg Tablet.dr 1 TAB PO DAILY, #15 TAB 0 Refills Prov: MORGAN LEON MD 06/02/25 Education Educated: Patient Educated regarding: diagnosis, treatment, need for follow up Signature Scribe Signature: na Attestation: The note accurately reflects work and decisions made by me.Morgan Leon MD 06/02/25 18:40 KRISTY Seymour MD Jun 02, 2025 16:56 MORGAN LEON MD Jun 02, 2025 18:40
[2025-06-02 17:25] LABS: LEUKOCYTE ESTERASE ,URINE NEGATIVE (Neg); NITRITES, URINE NEGATIVE (Neg); OCCULT BLOOD,URINE NEGATIVE (Neg)
[2025-06-02 17:26] LABS: MEAN PLATELET VOLUME 8.6 FL (7.4-10.4); RED CELL DISTRIBUTION WIDTH 13.1 % (11.5-14.5)
[2025-06-02 17:27] LABS: UA COLLECTION TYPE CLN CATCH MIDSTREAM; URINE HCG NEGATIVE (NEG)
[2025-06-02] MEDS: mag hydrox/Alum hydrox/simeth 30ml oral suspension PO ONE (17:27)
[2025-06-02] MEDS: LIDOcaine 2% Viscous 15ml cup MM ONE (17:27)
[2025-06-02 17:31] LABS: SQUAMOUS EPITHELIAL CELL,UR FEW /LPF (FEW); WBC CLUMPS,URINE FEW /HPF (NEGATIVE)
[2025-06-02 17:32] LABS: AMORPHOUS URATES 2+
[2025-06-02 17:42] LABS: CREATININE 7.08 MG/DL (0.40-0.90); TOTAL CARBON DIOXIDE 26.6 MMOL/L (24-32); eCRCL 7 ML/MIN; eGFR 6 ML/MIN
--- NOTE | 2025-06-02 18:17 | RADIOLOGY REPORT ---
CLINICAL HISTORY: Upper abdominal pain, nausea, pain radiates to back TECHNIQUE: CT of the abdomen and pelvis was performed without IV contrast. This exam was performed according to our departmental dose optimization program. Up-to-date CT equipment and radiation dose reduction techniques are utilized as appropriate. CTDI 18.2 DLP 850 COMPARISON: None FINDINGS: Abdomen/Pelvis: The spleen, pancreas, gallbladder, liver, adrenal glands, uterus, and bladder are grossly unremarkable. Period of the [place] kidneys are severely atrophic with hypodense lesions which are incompletely characterized due to lack of IV contrast. There is a left lower quadrant renal transplant with cortical thickening and hypodense lesion which is incompletely characterized due to lack of IV contrast. There is a left paramedian approach peritoneal dialysis catheter which terminates within the pelvis. The abdominal aorta is normal in course and caliber. There are no significant atherosclerotic calcifications. There is no free intraperitoneal air or fluid. There is no enlarged abdominal pelvic lymph node. There is no bowel wall thickening or dilatation. There is a large periampullary duodenal diverticulum. There is a small to moderate right containing umbilical / periumbilical hernia with numerous septations. There is mild sigmoid colon diverticulosis. Advanced aortic atherosclerotic calcifications. Other: The imaged lower thorax is mildly enlarged with coronary artery calcifications. No acute osseous abnormality is evident. Impression: No acute noncontrast CT abnormality in the abdomen / pelvis. Severely atrophic [place] kidneys. Left lower quadrant transplant kidney with cortical thickening. Peritoneal dialysis catheter. Colonic diverticulosis.
[2025-06-02] MEDS ORDERED: PANT-47 PO (18:40)
[2025-06-02] MEDS: pantoprazole 40mg Tablet.DR PO ONE (19:03)
[2025-06-02 19:06] VITALS: BP 142/66; PULSE 78; RESP 16; O2SAT 98
== END 2025-06-02 19:09 | disposition home or self-care (01) ==
LOC: ER 16:30
DX: K29.00 Acute gastritis without bleeding (principal); K21.9 Gastro-esophageal reflux disease without esophagitis; I10 Essential (primary) hypertension; E11.9 Type 2 diabetes mellitus without complications; Z86.73 Personal history of transient ischemic attack (TIA), and cerebral infarction without residual deficits; Z88.5 Allergy status to narcotic agent; Z95.5 Presence of coronary angioplasty implant and graft; Z88.8 Allergy status to other drugs, medicaments and biological substances; Z79.4 Long term (current) use of insulin; Z79.899 Other long term (current) drug therapy
CPT/HCPCS: 36415; 74176; 80053; 81001; 81025; 83690; 85025; 87088; 99284; J7030

== ENCOUNTER 2025-07-09 21:41 | Emergency (ER) | payer MEDICARE, MEDICAID ==
[~2025-07-09] VITALS: Ht 160 cm; Wt 63.0 kg
[~2025-07-09 21:41] MED LIST changes: +PANT-47 PO
--- NOTE | 2025-07-09 21:57 | ELECTROCARDIOGRAPH REPORT ---
[facility] Test Date: 2025-07-09 Test Time: 21:46:27 Pat Name: CURT COATES Department: EMERGENCY ROOM Room: Gender: F Qa Automation Developer: : [id number] Requested By: CARLO GROVER Order Number: [id number] Reading MD: Dr. Wilbur Tran Measurements Intervals [place] Rate: 134 P: 84 WI: 134 QRS: 90 QRSD: 152 T: 55 QT: 366 QTc: 547 Interpretive Statements Sinus tachycardia Paired ventricular premature complexes RBBB and LPFB Electronically Signed On 07-11-2025 7:41:[address] Wilbur Trna Please click the below link to view image of tracing.
[2025-07-09 22:05] LABS: MEAN PLATELET VOLUME 8.9 FL (7.4-10.4); RED CELL DISTRIBUTION WIDTH 14.4 % (11.5-14.5)
[2025-07-09 22:27] LABS: CREATININE 9.32 MG/DL (0.40-0.90); TOTAL CARBON DIOXIDE 19.4 MMOL/L (24-32); eCRCL 5 ML/MIN; eGFR 4 ML/MIN
[2025-07-09 22:29] LABS: PRO BRAIN NATRIURETIC PEPTIDE > 30000 PG/ML (0-125)
--- NOTE | 2025-07-09 22:39 | RADIOLOGY REPORT ---
CHEST RADIOGRAPH Indication: CP Technique: Single frontal view of the chest was obtained COMPARISON: CHEST,SINGLE VIEW on DOS: 02/11/23, CHEST,SINGLE VIEW on DOS: 09/27/22, CHEST,SINGLE VIEW on DOS: 09/07/22 FINDINGS: Lines and Tubes: None Lungs: Clear Pleura: No effusion. No pneumothorax. Cardiomediastinal contours: Unremarkable Bones: Unremarkable IMPRESSION: 1. No acute disease.
[2025-07-09 22:42] LABS: BANDS% (MANUAL) 3.0 % (0-10); LYMPHOCYTES % (MANUAL) 7.0 % (21-51); MONOCYTES % (MANUAL) 14.0 % (2-12); NEUTROPHILS % (MANUAL) 76.0 % (42-75)
[2025-07-09 22:44] LABS: PLATELET ESTIMATE NORMAL
[2025-07-09] MEDS ORDERED: heparin 10,000 units/1 ML INJ IV PRN (23:00)
--- NOTE | 2025-07-09 23:13 | Physician Documentation ---
History of Present Illness ~ Chief Complaint: Chest Pain Stated Complaint: CHEST PAIN Time Seen by MD: 22:43 Primary Medical Doctor: Mynor Marks MD HPI Patient presents to the emergency room with acute onset chest pain. No prior instances. States she rated up to her neck. Patient does do peritoneal dialysis. Medication Reconciliation Allergies: Coded Allergies: baclofen (Verified Allergy, Intermediate, RASH, 07/09/25) hydromorphone HCl (Unverified Allergy, Intermediate, 07/09/25) morphine (Verified Allergy, Unknown, 07/09/25) zolpidem (Verified Adverse Reaction, Unknown, "WANDERS", 07/09/25) Uncoded Allergies: AMBIAN (Allergy, Severe, wanders, 09/27/22) TAPE (Allergy, Unknown, 09/07/22) Scheduled Apixaban (Eliquis), 1 TAB PO BID, (Reported) Diltiazem HCl (Diltiazem 24Hr ER), 1 CAP PO DAILY, (Reported) Empagliflozin (Jardiance), 1 TAB PO DAILY, (Reported) Famotidine (Famotidine), 1 TAB PO DAILY, (Reported) Hydralazine HCl (Hydralazine HCl), 1 TAB PO Q8H, (Reported) Insulin Glargine,Hum.rec.anlog (Basaglar Kwikpen U-100), 20 UNITS SQ HS, (Reported) Latanoprost (XALATAN ophth drops), 1 DROP EACHEYE HS, (Reported) Losartan Potassium (Losartan Potassium), 1 TAB PO HS, (Reported) Metoprolol Tartrate (Metoprolol Tartrate), 1 TAB PO BID, (Reported) Mycophenolate Mofetil (Mycophenolate Mofetil), 3 CAP PO BID, (Reported) Pantoprazole Sodium (PROTONIX tablet), 1 TAB PO DAILY Spironolactone (Aldactone), 1 TAB PO DAILY, (Reported) Timolol Maleate Xe 0.5%* (Timoptic Xe 0.5%*), 1 DRP EACHEYE DAILY, (Reported) Miscellaneous Medications Insulin Lispro (Insulin Lispro), SQ, (Reported) Past Medical History Past Medical History: CVA/TIA/Stroke, Hypertension, Diabetes Past Surgical History: other Other Past Surgical History: Cardiac stents, kidney transplant 2003 Alcohol Use: None Drug Use: none Lives In: Home Review of Systems ROS All review of systems negative except as per HPI Physical Exam Vital Signs: Temperature: 98.1, Source: Oral, Heart Rate: 115, Respiratory Rate: 14, BP: 132/85, Pulse Oximetry: 98, Weight: 63.000 Oxygen Flow Rate: 4 Physical Exam General: Patient is awake, alert, oriented x4 in no acute distress and well appearing.~ Head: Normocephalic and atraumatic. Eyes: Conjunctival normal. EOMI. PERRL. ENT: Mucous membranes moist. Neck: Supple, trachea is midline. Chest: Clear to auscultation bilaterally without rales, rhonchi, or wheezes. There is no accessory muscle use or retractions. Cardiac: Tachycardic irregular without murmurs, gallops, or rubs. Abd: Soft, nondistended, nontender, with normoactive bowel sounds. No guarding, rebound, or rigidity. Extremities: Normal strength. Normal range of motion. No deformities or edema. No calf tenderness to palpation Progress Results/Orders Results/Orders Orders - MORGAN GROVER MD Chest,Single View (07/09/25 22:20) Monitor (07/09/25 21:55) Saline Lock (07/09/25 21:55) Oxygen (07/09/25 21:55) Hs Troponin I W Calculations (07/09/25 23:55) Hs Troponin I W Calculations (07/10/25 00:55) Pt Inr (07/09/25 23:00) PTT (07/09/25 23:00) Heparin 10,000 Unit/Ml 1ml (Heparin 10,0 (07/09/25 23:00) Heparin 25,000 Unit/250ml Bag (Heparin 2 (07/09/25 23:00) Heparin 10,000 Unit/Ml 1ml (Heparin 10,0 (07/09/25 23:00) Cbc/Diff (07/10/25 03:00) Cbc/Diff (07/11/25 03:00) Cbc/Diff (07/12/25 03:00) Cbc/Diff (07/13/25 03:00) Cbc/Diff (07/14/25 03:00) Page Hospitalist (07/09/25 23:02) Fill Out Med Reconciliation (07/09/25 23:02) Completed Orders - MORGAN GROVER MD Chest,Single View (07/09/25 22:20) Cbc/Diff (07/09/25 21:55) BMP (07/09/25 21:55) PBNP (07/09/25 21:55) Electrocardiogram (07/09/25 21:55) Hs Troponin I W Calculations (07/09/25 21:55) Man Diff (07/09/25 21:54) Vital Signs 07/09/25 07/09/25 07/09/25 07/09/25 21:43 21:54 21:55 22:34 Temp 98.1 98.1 98.1 Pulse 64 62 115 Resp 14 14 14 B/P (MAP) 140/72 140/72 (94) 132/85 (101) Pulse Ox 98 98 98 98 O2 Delivery Nasal Cannula* O2 Flow Rate 4 4 FiO2 36 36 Laboratory Tests Test 07/09/25 21:54 White Blood Count 9.6 Red Blood Count 3.18 L Hemoglobin 9.4 L Hematocrit 28.5 L Mean Corpuscular Volume 89.6 Mean Corpuscular Hemoglobin 29.6 Mean Corpuscular Hemoglobin Concent 33.0 Red Cell Distribution Width 14.4 Platelet Count 278 Mean Platelet Volume 8.9 Neutrophils (%) (Auto) 75.6 H Lymphocytes (%) (Auto) 5.5 L Monocytes (%) (Auto) 16.5 H Eosinophils (%) (Auto) 1.7 Basophils (%) (Auto) 0.7 Neutrophils # (Auto) 7.3 Lymphocytes # (Auto) 0.5 L Monocytes # (Auto) 1.6 H Eosinophils # (Auto) 0.2 Basophils # (Auto) 0.1 CBC Comment Differential Total Cells Counted 100 Neutrophils % (Manual) 76.0 H Band Neutrophils % 3.0 Lymphocytes % (Manual) 7.0 L Monocytes % (Manual) 14.0 H Platelet Estimate Normal Red Blood Cell Morphology Normal Basophilic Stippling Coagulation Comments Sodium Level 139 Potassium Level 3.9 Chloride Level 102 Carbon Dioxide Level 19.4 L Anion Gap 18 H Blood Urea Nitrogen 52 H Creatinine 9.32 H Estimated GFR/1.73 m2 4 BUN/Creatinine Ratio 5.6 L Glucose Level 152 H Calcium Level 8.9 Troponin I High Sensitivity 110 *H Pro-B-Type Natriuretic Peptide > 74016 H Albumin 2.8 L Chemistry Comments EKG/XRAY/CT/US/VASC/MRI EKG : Additional Comment EKG interpreted by myself shows time of 10/07/2045, rate 134, atrial fibrillation, normal axis, nonspecific ST-T changes, right bundle-branch block Medical Decision Making Additional information obtaine: old records Findings Patient presented to the emergency room for evaluation of chest pain. Differentials include but are not limited to ACS, aortic pathology, pulmonary embolism therefore emergent labs and imaging indicated. Patient's pain is greatly improved therefore I do not feel she is suffering from acute aortic pathology or pulmonary embolism. Noted elevation of troponins and BNP. Chest x-ray is cleared he had not feel she is suffering from karen congestive heart failure and I feel this is likely a function of her kidney status. As she is having chest pain risks versus benefits heparin has been initiated. I did personally speak with Dr. Duran regarding nephrology in need for possible peritoneal dialysis and at this time she does not need dialysis and hopefully we are able to perform her cardiologic workup before she should need dialysis but if she remains in her hospital we may need to transfer her. Patient also noted to be in atrial fibrillation with elevated heart rate. Heart Score: 5 Differential Dx:Considerations: Include: angina, aortic dissection, chest wall pain, cholelithiasis, CHF, costochondritis, esophageal reflux/spasm, gastritis, herpes zoster, myocardial infarction, pericarditis, pleuritis, pancreatitis, pneumonia, pneumothorax, pulmonary embolus, other Departure Admitted to Inpatient Unit: yes, to hospitalist Impression: Primary Impression: NSTEMI (non-ST elevated myocardial infarction) Additional Impressions: End stage renal disease Atrial fibrillation with RVR Condition: Guarded Referrals: NO PRIMARY CARE PROVIDER (PCP) Critical Care Note Total Time (mins): 30 Critical Care Note The very real possibility of a deterioration of this patient's condition required the highest level of my preparedness for sudden, emergent intervention. I provided critical care services, which included medication orders, frequent reevaluations of the patient's condition and response to treatment, ordering and reviewing test results, and discussing the case with various consultants. Excludes time spent performing separately billable procedures. The critical care time associated with the care of the patient was 30 minutes not counting procedures Signature Scribe Signature: No scribe Attestation: The note accurately reflects work and decisions made by me.Morgan Grover MD 07/09/25 23:14 MORGAN GROVER MD Jul 09, 2025 23:13
[2025-07-09 23:19] LABS: APTT 29 SECONDS (22-32); INR 1.2 INR
[2025-07-09] MEDS: heparin 10,000 units/1 ML INJ IV ONE (23:46)
[2025-07-09] MEDS: heparin 25,000 UNIT/250ml bag 250 ML IV PRN (23:47)
[2025-07-09] MEDS: MESSAGE TO NURSING IV ONE (23:49)
[2025-07-10] VITALS (9 sets, daily range): BP systolic 132–163; BP diastolic 66–86; PULSE 58–98; RESP 16; TEMP 98.1; O2SAT 96–99
[2025-07-10 01:55] LABS: MEAN PLATELET VOLUME 8.9 FL (7.4-10.4); RED CELL DISTRIBUTION WIDTH 14.7 % (11.5-14.5)
[2025-07-10] MEDS ORDERED: heparin 25,000 UNIT/250ml bag 250 ML IV PRN (08:59)
[2025-07-10] MEDS: MESSAGE TO NURSING IV ONE (09:03)
[2025-07-10] MEDS ORDERED: regadenoson 0.4mg/5ml syringe IV ONE (12:45)
[2025-07-10] MEDS: regadenoson 0.4mg/5ml syringe IV ONE (12:53)
--- NOTE | 2025-07-10 14:18 | RADIOLOGY REPORT ---
Reason for study/Clinical History: chest pain, elevated troponin Comparison Study: None Myocardial Perfusion Study with SPECT Technique: The patient received an intravenous injection of 7.6 mCi of technetium-99m Sestamibi while at rest. After a short delay, SPECT tomographic images of the heart were obtained. The patient then went to the stress lab where they received an intravenous Lexiscan utilizing standard protocol. 30 mCi of technetium-99m Sestamibi was injected intravenously immediately after the start of the infusion. Gated SPECT tomographic images of the heart were acquired and processed. Findings: Rotating planar images show no significant attenuation artifact. The left ventricular size is within normal limits. Stress tomographic images demonstrate normal perfusion. Resting tomographic images demonstrate a similar pattern. Gated portion of the study shows normal wall motion and myocardial thickening. The left ventricular ejection fraction is 56%. (normal greater than 50%) Impression: Normal left ventricular size, wall motion, and function, without evidence of infarction or of myocardium at ischemic risk. The left ventricular ejection fraction is 56%.
== END 2025-07-10 19:11 | disposition home or self-care (01) ==
LOC: ER 21:42
DX: I21.4 Non-ST elevation (NSTEMI) myocardial infarction (principal); I13.2 Hypertensive heart and chronic kidney disease with heart failure and with stage 5 chronic kidney disease, or end stage renal disease; E11.22 Type 2 diabetes mellitus with diabetic chronic kidney disease; I50.9 Heart failure, unspecified; N18.6 End stage renal disease; I48.91 Unspecified atrial fibrillation; Z86.73 Personal history of transient ischemic attack (TIA), and cerebral infarction without residual deficits; Z88.5 Allergy status to narcotic agent; Z95.5 Presence of coronary angioplasty implant and graft; Z88.8 Allergy status to other drugs, medicaments and biological substances; Z79.899 Other long term (current) drug therapy
CPT/HCPCS: 36415; 71045; 78452; 80048; 83880; 84484; 85007; 85025; 85610; 85730; 93005; 93017; 96365; 96366; 96375; 96376; 99291; A9500; J1644; J2785